=== PATIENT | male | born 1995 | race Two or more races ===

== ENCOUNTER 2018-10-07 16:19 | Emergency (ER) | payer OTHER ==
[~2018-10-07] VITALS: Ht 188 cm; Wt 74.8 kg
[~2018-10-07 16:19] MED LIST: ADVIL
== END 2018-10-07 19:40 | disposition home or self-care (01) ==
LOC: ER 16:19
DX: B95.62 Methicillin resistant Staphylococcus aureus infection as the cause of diseases classified elsewhere (principal)